=== PATIENT | female | born 1930 | race Caucasian/White ===

== ENCOUNTER → 2017-10-10 | Outpatient (CLI) | payer MEDICARE, BC ==
[~2017-10-10] MED LIST: ALENDRONATE SOD35 MG PO; AMLO5 PO; ASPI325EC PO; ATOR10 PO; CELE200 PO; CHOL10002 PO; CRANBERRY250 MG PO; DOCU100 PO; Dyazide 37.5-21 EACH PO; FISH OIL PO; GABA100 PO; GLUC500 PO; METPRE4DP PO; ONDA4 PO; OXYC5 PO; RALO60 PO; STOOL SOFTENER1 EAC2 PO; TRAM50 PO; TRIHYD253B PO; VIACTIV SOFT C1 EACH PO; VITAMIN B122500 MC1 PO; VITAMIN B6 PO; [UNRECOGNIZED DRUG - OTHER] PO
== END | disposition home or self-care (01) ==
LOC: LAB 17:46
DX: N39.0 Urinary tract infection, site not specified (principal)
CPT/HCPCS: 87077; 87086; 87186

== ENCOUNTER → 2017-10-22 | Outpatient (CLI) | payer MEDICARE, BC | LOC: LAB SHORT 11:00 | DX: N39.0 Urinary tract infection, site not specified (principal) | CPT/HCPCS: 87077; 87086; 87186 ==

== ENCOUNTER 2018-05-30 10:39 | Inpatient (IN) | payer MEDICARE, BC ==
[~2018-05-30] VITALS: Ht 162.6 cm; Wt 74.8 kg
[~2018-05-30 10:39] MED LIST changes: -ASPI325EC PO; -ATOR10 PO; -CHOL10002 PO; -DOCU100 PO; -Dyazide 37.5-21 EACH PO; -FISH OIL PO; -VIACTIV SOFT C1 EACH PO; -VITAMIN B122500 MC1 PO; -[UNRECOGNIZED DRUG - OTHER] PO
[2018-06-03] MEDS ORDERED: CELE200 PO (07:56)
[2018-06-03] MEDS ORDERED: RALO60 PO (07:56)
[2018-06-03] MEDS ORDERED: FISH OIL PO (07:59)
[2018-06-03] MEDS ORDERED: [UNRECOGNIZED DRUG - OTHER] PO (07:59)
[2018-06-10 16:06] LABS: BODY FLUID RBC 0.037 (0-0); RBC Count, Synovial Fluid 37000 /mm3 (0-0); WBC Count, Synovial Fluid 618 /mm3 (0-180)
[2018-06-10 16:11] LABS: Appearance, Synovial Fluid Cloudy (Clear); Color, Synovial Fluid Red (None-P Yel)
[2018-06-10 16:42] LABS: Lymphs, Synovial Fluid 86 % (0-15); Monocytes/Macrophages, Synovia 10 % (0-65); Neutrophils, Synovial Fluid 2 % (0-24)
[2018-06-10 16:43] LABS: Other Cells, Synovial Fluid 2 % (0-0)
[2018-06-11 06:22] LABS: BASOPHILS PERCENT AUTO 0 % (0-2); EOSINOPHILS PERCENT AUTO 0 % (0-6); Hemoglobin 10.4 g/dL (11.5-16.0); IMMATURE GRAN ABSOLUTE AUTO 0.04 K/mm3 (0.00-0.10); IMMATURE GRAN PERCENT AUTO 0 % (0-1); LYMPHOCYTES PERCENT AUTO 8 % (21-46); MONOCYTES ABSOLUTE AUTO 0.89 K/mm3 (0.16-1.47); MONOCYTES PERCENT AUTO 9 % (4-13); Mean Corpuscular HGB 30.2 pg (26.0-34.0); Mean Corpuscular HGB Conc 31.5 g/dL (31.5-36.5); Mean Corpuscular Volume 96 fL (80-100); Mean Platelet Volume 9.1 fL (9.1-12.4); NEUTROPHILS ABSOLUTE AUTO 7.91 K/mm3 (1.96-9.15); NEUTROPHILS PERCENT AUTO 82 % (41-73); Platelet Count 147 K/mm3 (150-400); RDW Coefficient Variation 13.2 % (11.7-14.2); RDW Standard Deviation 46.5 fL (35.1-46.3); Red Blood Cell Count 3.44 M/mm3 (3.80-5.20); White Blood Cell Count 9.64 K/mm3 (4.00-11.30)
[2018-06-11 06:45] LABS: Anion Gap 7 mmol/L (6-16); Blood Urea Nitrogen 21 mg/dL (8-24); Bun/Creatinine Ratio 31.4 (12.0-20.0); CO2, Blood 27 mmol/L (21-32); Calcium, Blood 8.1 mg/dL (8.5-10.1); Chloride, Blood 102 mmol/L (98-108); Creatinine, Blood 0.67 mg/dL (0.40-1.00); Glomerular Filtration Rate >60 (60-); Glucose, Blood 119 mg/dL (70-99); Magnesium, Blood 1.9 mg/dL (1.6-2.4); Potassium, Blood 4.7 mmol/L (3.5-5.5); Sodium, Blood 136 mmol/L (136-145)
[2018-06-11] MEDS ORDERED: OXYC5 PO (12:39)
[2018-06-11] MEDS ORDERED: ASPI325EC PO (12:41)
[2018-06-11] MEDS ORDERED: DOCU100 PO (12:42)
[2018-06-11] MEDS ORDERED: ATOR10 PO (13:09)
[2018-06-11] MEDS ORDERED: Dyazide 37.5-21 EACH PO (13:09)
[2018-06-11] MEDS ORDERED: VITAMIN B122500 MC1 PO (13:10)
[2018-06-11] MEDS ORDERED: CHOL10002 PO (13:10)
[2018-06-11] MEDS ORDERED: VIACTIV SOFT C1 EACH PO (13:10)
== END 2018-06-11 13:55 | disposition home or self-care (01) | DRG 483 ==
LOC: PRE IP 06-04 07:30 → SURS 06-10 11:19
PROVIDERS: Orthopaedic Surgery
PROC: 0RRJ00Z Replacement of Right Shoulder Joint with Reverse Ball and Socket Synthetic Substitute, Open Approach (ICD-10-PCS; principal; 2018-06-10 12:30)
DX: M19.011 Primary osteoarthritis, right shoulder (principal); M12.811 Other specific arthropathies, not elsewhere classified, right shoulder; M06.9 Rheumatoid arthritis, unspecified; I10 Essential (primary) hypertension; K21.9 Gastro-esophageal reflux disease without esophagitis; M81.0 Age-related osteoporosis without current pathological fracture; E78.00 Pure hypercholesterolemia, unspecified; Z85.3 Personal history of malignant neoplasm of breast; Z88.2 Allergy status to sulfonamides; Z79.1 Long term (current) use of non-steroidal anti-inflammatories (NSAID); Z79.899 Other long term (current) drug therapy
CPT/HCPCS: 36415; 73030; 80048; 83735; 85025; 89051; 97110; 97116; 97162; 97166; 97530; 97535; C1776; G8978; G8979; G8980; G8987; G8988; G8989; J0171; J0690; J0735; J1100; J1885; J2370; J2405; J2550; J2765; J2795; J3010; J7120

== ENCOUNTER → 2018-10-23 | Outpatient (CLI) | payer MEDICARE, BC ==
[~2018-10-23] MED LIST changes: +ASPI325EC PO; +ATOR10 PO; +CHOL10002 PO; +DOCU100 PO; +Dyazide 37.5-21 EACH PO; +FISH OIL PO; +VIACTIV SOFT C1 EACH PO; +VITAMIN B122500 MC1 PO; +[UNRECOGNIZED DRUG - OTHER] PO
[2018-10-23 18:29] LABS: Alanine Aminotransfer (ALT/SGP 17 U/L (12-78); Albumin, Blood 3.5 g/dL (3.4-5.0); Albumin/Globulin Ratio 1.1 (0.8-1.8); Alk Phos 61 U/L (50-136); Anion Gap 6 mmol/L (6-16); Aspartate Aminotrans (AST/SGOT 20 U/L (12-37); Bilirubin, Total 0.4 mg/dL (0.1-1.0); Blood Urea Nitrogen 16 mg/dL (8-24); Bun/Creatinine Ratio 19.9 (12.0-20.0); CHOL/HDL RATIO 2.3; CO2, Blood 28 mmol/L (21-32); Calcium, Blood 8.6 mg/dL (8.5-10.1); Chloride, Blood 102 mmol/L (98-108); Cholesterol 202 mg/dL (50-200); Creatinine, Blood 0.81 mg/dL (0.40-1.00); Globulin, Blood 3.2 g/dL (2.2-4.0); Glomerular Filtration Rate >60 (60-); Glucose, Blood 91 mg/dL (70-99); HDL Cholesterol 89 mg/dL (>39); Low Density Lipoprotein Chol 91 mg/dL (0-110); Potassium, Blood 4.2 mmol/L (3.5-5.5); Sodium, Blood 136 mmol/L (136-145); Total Protein, Blood 6.7 g/dL (6.4-8.2); Triglycerides 109 mg/dL (30-160); Very Low Density Lipoprot Chol 21 mg/dL (6-32)
[2018-10-23 19:56] LABS: BASOPHILS ABSOLUTE AUTO 0.03 K/mm3 (0.00-0.23); BASOPHILS PERCENT AUTO 1 % (0-2); EOSINOPHILS ABSOLUTE AUTO 0.04 K/mm3 (0.00-0.68); EOSINOPHILS PERCENT AUTO 1 % (0-6); Hematocrit 41.4 % (33.0-51.0); Hemoglobin 13.2 g/dL (11.5-16.0); IMMATURE GRAN ABSOLUTE AUTO 0.03 K/mm3 (0.00-0.10); IMMATURE GRAN PERCENT AUTO 1 % (0-1); LYMPHOCYTES ABSOLUTE AUTO 1.62 K/mm3 (0.84-5.20); LYMPHOCYTES PERCENT AUTO 33 % (21-46); MONOCYTES ABSOLUTE AUTO 0.59 K/mm3 (0.16-1.47); MONOCYTES PERCENT AUTO 12 % (4-13); Mean Corpuscular HGB 30.3 pg (26.0-34.0); Mean Corpuscular HGB Conc 31.9 g/dL (31.5-36.5); Mean Corpuscular Volume 95 fL (80-100); Mean Platelet Volume 10.4 fL (9.1-12.4); NEUTROPHILS PERCENT AUTO 53 % (41-73); Platelet Count 168 K/mm3 (150-400); RDW Coefficient Variation 13.4 % (11.7-14.2); RDW Standard Deviation 47.6 fL (35.1-46.3); Red Blood Cell Count 4.35 M/mm3 (3.80-5.20); White Blood Cell Count 4.91 K/mm3 (4.00-11.30)
== END ==
LOC: LAB SHORT 17:43 → LAB 17:43
PROVIDERS: Nurse Practitioner Family
DX: E78.5 Hyperlipidemia, unspecified (principal); I10 Essential (primary) hypertension; M85.80 Other specified disorders of bone density and structure, unspecified site
CPT/HCPCS: 80053; 80061; 82306; 85025

== ENCOUNTER 2020-12-30 15:39 | Emergency (ER) | payer MEDICARE, BC ==
[~2020-12-30] VITALS: Ht 154.9 cm; Wt 72.1 kg
[2020-12-30] MEDS ORDERED: AMLODIPINE BES2.5 MG PO (16:21)
[2020-12-30 16:46] LABS: BASOPHILS ABSOLUTE AUTO 0.01 K/mm3 (0.00-0.23); BASOPHILS PERCENT AUTO 0 % (0-2); EOSINOPHILS ABSOLUTE AUTO 0.04 K/mm3 (0.00-0.68); EOSINOPHILS PERCENT AUTO 1 % (0-6); Hematocrit 38.1 % (33.0-51.0); Hemoglobin 12.6 g/dL (11.5-16.0); IMMATURE GRAN ABSOLUTE AUTO 0.01 K/mm3 (0.00-0.10); IMMATURE GRAN PERCENT AUTO 0 % (0-1); LYMPHOCYTES ABSOLUTE AUTO 0.93 K/mm3 (0.84-5.20); LYMPHOCYTES PERCENT AUTO 17 % (21-46); MONOCYTES PERCENT AUTO 11 % (4-13); Mean Corpuscular HGB 32.4 pg (26.0-34.0); Mean Corpuscular HGB Conc 33.1 g/dL (31.5-36.5); Mean Corpuscular Volume 98 fL (80-100); Mean Platelet Volume 10.5 fL (9.1-12.4); NEUTROPHILS ABSOLUTE AUTO 3.78 K/mm3 (1.96-9.15); NEUTROPHILS PERCENT AUTO 70 % (41-73); Platelet Count 184 K/mm3 (150-400); RDW Coefficient Variation 13.9 % (11.7-14.2); RDW Standard Deviation 50.3 fL (35.1-46.3); Red Blood Cell Count 3.89 M/mm3 (3.80-5.20); White Blood Cell Count 5.37 K/mm3 (4.00-11.30)
[2020-12-30 17:04] LABS: Alanine Aminotransfer (ALT/SGP 69 U/L (12-78); Albumin, Blood 3.3 g/dL (3.4-5.0); Albumin/Globulin Ratio 0.9 (0.8-1.8); Alk Phos 69 U/L (50-136); Anion Gap 7 mmol/L (6-16); Aspartate Aminotrans (AST/SGOT 58 U/L (12-37); Bilirubin, Total 0.8 mg/dL (0.1-1.0); Blood Urea Nitrogen 21 mg/dL (8-24); Bun/Creatinine Ratio 24.8 (12.0-20.0); CO2, Blood 25 mmol/L (21-32); Chloride, Blood 105 mmol/L (98-108); Creatinine, Blood 0.85 mg/dL (0.40-1.00); Globulin, Blood 3.8 g/dL (2.2-4.0); Glomerular Filtration Rate >60 (60-); Glucose, Blood 105 mg/dL (70-99); Potassium, Blood 4.1 mmol/L (3.5-5.5); Sodium, Blood 137 mmol/L (136-145); Total Protein, Blood 7.1 g/dL (6.4-8.2); Troponin I 0.015 ng/mL (0.000-0.040)
== END 2020-12-30 20:45 | disposition home or self-care (01) ==
LOC: ER 15:39
PROVIDERS: Physician Assistant
DX: R06.00 Dyspnea, unspecified (principal); Z79.899 Other long term (current) drug therapy
CPT/HCPCS: 36415; 71045; 71260; 80053; 83735; 83880; 84484; 85025; 85379; 93005; 93010; 99285-25; Q9967

== ENCOUNTER 2021-02-08 09:53 | Day surgery (SDC) | payer MEDICARE, BC ==
[~2021-02-08] VITALS: Ht 157.5 cm; Wt 70.0 kg
[~2021-02-08 09:53] MED LIST changes: +AMLODIPINE BES2.5 MG PO
[2021-02-08] MEDS ORDERED: FUROSEMIDE20 MG PO (10:34)
[2021-02-08] MEDS ORDERED: RALOXIFENE HCL PO (10:34)
[2021-02-08] MEDS ORDERED: K-Dur10 MEQ PO (10:35)
[2021-02-08] MEDS ORDERED: CELEBREX200 MG PO (10:36)
--- NOTE | 2021-02-08 11:07 | NUR ---
DR. GUO AT BEDSIDE TO EVALUATE PATIENT. QUESTIONS ANSWERED AND FAMILY PRESENT.
--- NOTE | 2021-02-08 13:05 | NUR ---
TO RECOVERY ROOM VIA RECLINER. PT AWAKE AND ALERT. TR BAND INTACT WITH 12 CC AIR CIRCULATION, SENSATION, MOTION NORMAL. DENIES CHEST PAIN.
--- NOTE | 2021-02-08 13:37 | NUR ---
DR. GUO HERE TO DISCUSS PROCEDURE WITH PATIENT.
--- NOTE | 2021-02-08 13:40 | NUR ---
2 CC AIR REMOVED FROM TR BAND. NO BLEEDING AT SITE. ADDITIONAL 4 CC AIRE REMOVED FROM BAND.
--- NOTE | 2021-02-08 14:20 | NUR ---
REMAINDER OF AIR REMOVED FROM TR BAND. SCANT BLOOD AT SITE BUT NO OOZING. BP 97/70. PT AWAKE AND ALERT
--- NOTE | 2021-02-08 14:30 | NUR ---
AMBULATED TO BATHROOM. DRESSING FOR DISCHARGE. SITE BLEEDING. AMBULATED TO BAED. SITE CLEANED. BRUISED BUT NO ACTIVE BLEEDING. CLOTH DOT, IMMOBILIZER AND SLING APPLIED. RIGHT BRACHEAL SITE UNCHANGED.
--- NOTE | 2021-02-08 15:15 | NUR ---
DAUGHTER MAZIN HERE. DISCHARGE INSTRUCTIONS GIVEN TO BOTH DAUGHTER AND PATIENT. IV REMOVED INTACT. 2X2, COBAN AND MANUAL PRESSURE APPLIED.
--- NOTE | 2021-02-08 15:35 | NUR ---
DISCHARGED HOME VIA WHEELCHAIR. DAUGHTER DRIVING.
[2021-02-18] MEDS ORDERED: Pyridium100 MG PO
[2021-02-18] MEDS ORDERED: Cipro500 MG PO
== END 2021-02-08 15:35 | disposition home or self-care (01) ==
LOC: MHTC 09:53
DX: I35.0 Nonrheumatic aortic (valve) stenosis (principal); I34.0 Nonrheumatic mitral (valve) insufficiency; R06.09 Other forms of dyspnea; I11.0 Hypertensive heart disease with heart failure; I50.9 Heart failure, unspecified; I34.1 Nonrheumatic mitral (valve) prolapse; E78.5 Hyperlipidemia, unspecified
CPT/HCPCS: 76937; 93456; 99152; 99153; C1769; C1894; J1644; J2250; J3010; J7030; J7040; Q9967

== ENCOUNTER 2021-02-18 19:19 | Emergency (ER) | payer MEDICARE, BC ==
[~2021-02-18] VITALS: Ht 157.5 cm; Wt 70.3 kg
[~2021-02-18 19:19] MED LIST changes: +CELEBREX200 MG PO; +Cipro500 MG PO; +FUROSEMIDE20 MG PO; +K-Dur10 MEQ PO; +Pyridium100 MG PO; +RALOXIFENE HCL PO
[2021-02-18 20:32] LABS: BASOPHILS ABSOLUTE AUTO 0.02 K/mm3 (0.00-0.23); BASOPHILS PERCENT AUTO 0 % (0-2); EOSINOPHILS ABSOLUTE AUTO 0.07 K/mm3 (0.00-0.68); EOSINOPHILS PERCENT AUTO 1 % (0-6); Hematocrit 37.8 % (33.0-51.0); Hemoglobin 12.4 g/dL (11.5-16.0); IMMATURE GRAN ABSOLUTE AUTO 0.02 K/mm3 (0.00-0.10); IMMATURE GRAN PERCENT AUTO 0 % (0-1); LYMPHOCYTES ABSOLUTE AUTO 0.81 K/mm3 (0.84-5.20); LYMPHOCYTES PERCENT AUTO 15 % (21-46); MONOCYTES ABSOLUTE AUTO 0.59 K/mm3 (0.16-1.47); MONOCYTES PERCENT AUTO 11 % (4-13); Mean Corpuscular HGB 32.5 pg (26.0-34.0); Mean Corpuscular HGB Conc 32.8 g/dL (31.5-36.5); Mean Corpuscular Volume 99 fL (80-100); Mean Platelet Volume 9.5 fL (9.1-12.4); NEUTROPHILS ABSOLUTE AUTO 3.93 K/mm3 (1.96-9.15); NEUTROPHILS PERCENT AUTO 72 % (41-73); Platelet Count 151 K/mm3 (150-400); RDW Coefficient Variation 13.8 % (11.7-14.2); RDW Standard Deviation 50.8 fL (35.1-46.3); Red Blood Cell Count 3.81 M/mm3 (3.80-5.20); White Blood Cell Count 5.44 K/mm3 (4.00-11.30)
[2021-02-18 20:50] LABS: Alanine Aminotransfer (ALT/SGP 63 U/L (12-78); Albumin, Blood 3.2 g/dL (3.4-5.0); Albumin/Globulin Ratio 0.9 (0.8-1.8); Alk Phos 70 U/L (50-136); Anion Gap 6 mmol/L (6-16); Aspartate Aminotrans (AST/SGOT 50 U/L (12-37); Bilirubin, Total 0.8 mg/dL (0.1-1.0); Blood Urea Nitrogen 16 mg/dL (8-24); Bun/Creatinine Ratio 17.3 (12.0-20.0); CO2, Blood 28 mmol/L (21-32); Calcium, Blood 8.7 mg/dL (8.5-10.1); Chloride, Blood 104 mmol/L (98-108); Creatinine, Blood 0.92 mg/dL (0.40-1.00); Globulin, Blood 3.5 g/dL (2.2-4.0); Glomerular Filtration Rate >60 (60-); Glucose, Blood 146 mg/dL (70-99); Potassium, Blood 3.7 mmol/L (3.5-5.5); Sodium, Blood 138 mmol/L (136-145); Total Protein, Blood 6.7 g/dL (6.4-8.2); Troponin I <0.015 ng/mL (0.000-0.040)
[2021-02-18 21:03] LABS: Source, Urine Catheter
[2021-02-18 21:06] LABS: Appearance, Urine Cloudy (Clear); Bilirubin, Urine Neg (Neg); Blood, Urine 3+ (Neg); Color, Urine Yellow (P-Yellow); Glucose Qualitative, Urine Neg (Neg); Ketones, Urine Neg (Neg); Leukocyte Esterase, Urine 3+ (Neg); Nitrite, Urine Neg (Neg); Protein, Urine 3+ (Neg); Urobilinogen, Urine NORM (Normal)
[2021-02-18 21:13] LABS: White Blood Cells, Urine TNTC /hpf (0-5)
[2021-02-18 21:14] LABS: Bacteria Mod /hpf; Squamous Epithelial Cells Few /hpf (Few)
== END 2021-02-19 00:15 | disposition home or self-care (01) ==
LOC: ER 19:19
PROVIDERS: Physician Assistant
DX: I82.819 Embolism and thrombosis of superficial veins of unspecified lower extremity (principal); Z88.2 Allergy status to sulfonamides; Z79.899 Other long term (current) drug therapy
CPT/HCPCS: 36415; 71046; 71260; 80053; 81001; 83690; 83880; 84484; 85025; 85379; 87086; 93005; 93010; 93931; 96365; 99285-25; J0696; Q9967

== ENCOUNTER 2021-04-15 05:26 | Inpatient (IN) | payer MEDICARE, BC ==
[~2021-04-15] VITALS: Ht 154.9 cm; Wt 69.7 kg
[~2021-04-15 05:26] MED LIST changes: -CHOL10002 PO; +FURO40 PO; -FUROSEMIDE20 MG PO; +VITAMIN D31000 UNI1 PO
[2021-04-15 06:34] LABS: BASOPHILS ABSOLUTE AUTO 0.01 K/mm3 (0.00-0.23); BASOPHILS PERCENT AUTO 0 % (0-2); EOSINOPHILS ABSOLUTE AUTO 0.05 K/mm3 (0.00-0.68); EOSINOPHILS PERCENT AUTO 1 % (0-6); Hemoglobin 9.9 g/dL (11.5-16.0); IMMATURE GRAN ABSOLUTE AUTO 0.02 K/mm3 (0.00-0.10); IMMATURE GRAN PERCENT AUTO 0 % (0-1); LYMPHOCYTES ABSOLUTE AUTO 0.63 K/mm3 (0.84-5.20); LYMPHOCYTES PERCENT AUTO 11 % (21-46); MONOCYTES ABSOLUTE AUTO 0.58 K/mm3 (0.16-1.47); MONOCYTES PERCENT AUTO 10 % (4-13); Mean Corpuscular HGB 34.1 pg (26.0-34.0); Mean Corpuscular Volume 103 fL (80-100); Mean Platelet Volume 9.6 fL (9.1-12.4); NEUTROPHILS ABSOLUTE AUTO 4.35 K/mm3 (1.96-9.15); NEUTROPHILS PERCENT AUTO 77 % (41-73); Platelet Count 104 K/mm3 (150-400); RDW Coefficient Variation 19.8 % (11.7-14.2); RDW Standard Deviation 72.2 fL (35.1-46.3); White Blood Cell Count 5.64 K/mm3 (4.00-11.30)
[2021-04-15 06:46] LABS: Alanine Aminotransfer (ALT/SGP 30 U/L (12-78); Albumin, Blood 3.4 g/dL (3.4-5.0); Albumin/Globulin Ratio 1.1 (0.8-1.8); Alk Phos 44 U/L (50-136); Anion Gap 8 mmol/L (6-16); Aspartate Aminotrans (AST/SGOT 77 U/L (12-37); Blood Urea Nitrogen 18 mg/dL (8-24); Bun/Creatinine Ratio 21.3 (12.0-20.0); CO2, Blood 25 mmol/L (21-32); Calcium, Blood 9.1 mg/dL (8.5-10.1); Chloride, Blood 103 mmol/L (98-108); Creatinine, Blood 0.84 mg/dL (0.40-1.00); Glomerular Filtration Rate >60 (60-); Glucose, Blood 94 mg/dL (70-99); Potassium, Blood 3.8 mmol/L (3.5-5.5); Sodium, Blood 136 mmol/L (136-145); Total Protein, Blood 6.4 g/dL (6.4-8.2); Troponin I 0.027 ng/mL (0.000-0.040)
--- NOTE | 2021-04-15 16:29 | NUR ---
PT CAME IN FOR ACUTE ON CHRONI CHF. PT IS 89/F ALERT AND ORINTEDX4; PLEASANT AND CALM. PT USES HEARING AIDES IN BOTH EARS. PT IS A 1P ASSIST [place]WW TO [facility] [place]. PT IS ON 3L OF 02 AT BASELINE. SATS ABOVE 90S. DYSPNEA ON EXERTION AND DENIES CP. PT HAD A AORTIC VALVE REPLACEMENT COUPLE MONTHS AGO IN [facility], AND SHE STATED THAT HER HEART WAS NEVER RIGHT AFTER THAT. PT LIVES WITH DTR AT HOME. PT TROP WNL AND BNP 1094. PT HAS BLE EDEMA +2/3. PT ALSO HAS DEPENDENT EDEMA ON RIGHT SHOULDER FROM PREVIOUS SURGERY. PAINFUL TO TOUCH. 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 PT HAS ECCHYMOTIC SKIN SCARTTERED AND INTACT. PT WOULD LIKE TO CONSIDER HOSPICE ON DISCHARGE. DTR WOULD LIKE TO BE PART AND TALK TO PALLIATIVE CARE. PT STATED SHE IS FAMILIAR WITH HOSPICE SINCE HER HAD HOSPICE 3YEARS AGO. BED ALARM IS ON AND CALL LIGHT WITHIN REACH
[2021-04-16 05:06] LABS: Hematocrit 32.8 % (33.0-51.0); Hemoglobin 10.3 g/dL (11.5-16.0); Mean Corpuscular HGB Conc 31.4 g/dL (31.5-36.5); Mean Corpuscular Volume 105 fL (80-100); Mean Platelet Volume 11.3 fL (9.1-12.4); Platelet Count 98 K/mm3 (150-400); RDW Standard Deviation 74.7 fL (35.1-46.3); Red Blood Cell Count 3.12 M/mm3 (3.80-5.20); White Blood Cell Count 6.42 K/mm3 (4.00-11.30)
[2021-04-16 05:29] LABS: Anion Gap 7 mmol/L (6-16); Blood Urea Nitrogen 18 mg/dL (8-24); Bun/Creatinine Ratio 23.5 (12.0-20.0); CO2, Blood 29 mmol/L (21-32); Calcium, Blood 8.6 mg/dL (8.5-10.1); Chloride, Blood 103 mmol/L (98-108); Creatinine, Blood 0.77 mg/dL (0.40-1.00); Glomerular Filtration Rate >60 (60-); Glucose, Blood 88 mg/dL (70-99); Potassium, Blood 3.3 mmol/L (3.5-5.5); Sodium, Blood 139 mmol/L (136-145)
--- NOTE | 2021-04-16 06:46 | NUR ---
SHIFT SUMMARY PT IS AN 89 Y/O FEMALE, ADMITTED FOR CHF EXACERBATION. SHE IS A&O X 3, FORGETFUL AT TIMES, 1PA TO THE BSC. DURING THE NIGHT, CAN TOP SETTER NOTED THAT PT WAS HAVING MULTIPLE PVCS, UP TO 30 IN ONE MINUTE, AND WAS IN BIGEMINY FOR A SHORT TIME, WITH A RATE IN THE 110-130S. AFTER INFORMING HOSPITALIST DR HOLLEY, PT WAS GIVEN OT DOSE OF IV METOPROLOL, WHICH MARK HER RATE DOWN TO THE 90-100S. VITAL SIGNS OTHERWISE STABLE. NO OTHER ACUTE CHANGES IN PT CONDITION NOTED DURING THE NIGHT. WILL CONTINUE TO MONITOR AND TREAT PER EMAR UNTIL HAND OFF TO DAY SHIFT RN.
--- NOTE | 2021-04-16 10:19 | NUR ---
DNR BAND VERIFIED AND PLACED ON LEFT WRIST
--- NOTE | 2021-04-16 18:12 | NUR ---
SHIFT SUMMARY PT AOX4; CALLS APPROPRIATELY. PT ON TELE SINUS TACH @ 100S. PT DENIES CP. DYSPNEA ON EXERTION AND ON 3L AT BASELINE. SATS ABOVE 90S. MEDICATED FOR PAIN PER EMAR. PT WILL HAVE A CONFERENCE MEETING WITH PALLIATIVE CARE TOMORROW- PLEASE CALL PALLIATIVE FOR THIS PT TOMORROW. THE MEETING WILL HAPPEN IN THE ROOM WITH DAUGHTERS CONSIDERING HOSPICE. BED IS IN THE LOWEST POSITION AND CALL LIGHT WITHIN REACH
[2021-04-17 04:41] LABS: Hematocrit 31.5 % (33.0-51.0); Mean Corpuscular HGB 33.8 pg (26.0-34.0); Mean Corpuscular HGB Conc 31.7 g/dL (31.5-36.5); Mean Corpuscular Volume 106 fL (80-100); Mean Platelet Volume 9.3 fL (9.1-12.4); Platelet Count 91 K/mm3 (150-400); RDW Coefficient Variation 19.7 % (11.7-14.2); RDW Standard Deviation 74.6 fL (35.1-46.3); Red Blood Cell Count 2.96 M/mm3 (3.80-5.20); White Blood Cell Count 5.68 K/mm3 (4.00-11.30)
[2021-04-17 05:04] LABS: Anion Gap 5 mmol/L (6-16); Blood Urea Nitrogen 17 mg/dL (8-24); Bun/Creatinine Ratio 23.3 (12.0-20.0); CO2, Blood 29 mmol/L (21-32); Calcium, Blood 8.6 mg/dL (8.5-10.1); Chloride, Blood 103 mmol/L (98-108); Creatinine, Blood 0.73 mg/dL (0.40-1.00); Glomerular Filtration Rate >60 (60-); Glucose, Blood 89 mg/dL (70-99); Potassium, Blood 3.5 mmol/L (3.5-5.5); Sodium, Blood 137 mmol/L (136-145)
--- NOTE | 2021-04-17 06:43 | NUR ---
SHIFT SUMMARY PT IS AN 89 Y/O FEMALE, ADMITTED FOR CHF. SHE IS A&O X 4, FORGETFUL AT TIMES, 1PA TO THE BSC. PT WAS MEDICATED ONCE AT HS FOR CHRONIC BACK PAIN WITH PRN TRAMADOL. NO C/O NAUSEA OR SOB. TELE SHOWED NSR IN THE 90S. CURRENTLY ON 3L O2 VIA NC, WHICH IS HER NORMAL HOME DOSE, SATTING > 92%. VITAL SIGNS OTHERWISE STABLE. NO OTHER ACUTE CHANGES IN PT CONDITION NOTED DURING THE NIGHT. WILL CONTINUE TO MONITOR AND TREAT PER EMAR UNTIL HAND OFF TO DAY SHIFT RN.
--- NOTE | 2021-04-17 16:36 | NUR ---
multiple conversations and visits with family to plan for pateitnts discharge needs. pt to dc on hospice care.
--- NOTE | 2021-04-17 21:22 | NUR ---
CALLED HOSPITALIST PT STATES SHE IS EXTREMELY SOB. SHE SEEMS QUITE ANXIOUS. NEW ORDER FOR DIURETIC RECEIVED. SHE DID CALL HER DAUGHTER. HER DAUGHTER REQUESTS THAT SHE DC WITH ANXIETY MEDICATION. I WILL PASS THIS REQUEST ON TO DAY RN.
--- NOTE | 2021-04-18 04:09 | NUR ---
SHIFT SUMMARY ADMITTED FOR CHF EXACERBATION. DNR CODE. PLAN IS FOR DC HOME WITH FAMILY ON HOSPICE. SHE DID HAVE SOB AT BEGINNING OF SHIFT. I DID CALL AND GET AN ORDER FOR LASIX. SEE PREVIOUS NOTE, THIS WAS EFFECTIVE. THE PT REPORTS IMPROVEMENT. SHE IS A&O X 3-4, BUT QUITE ANXIOUS AT TIMES. DAUGHTER REQUESTS ANXIETY MEDICATION AT DC, I WILL PASS THIS REQUEST ON TO DAY RN.
[2021-04-18] MEDS ORDERED: METO25ER PO (08:27)
--- NOTE | 2021-04-18 12:30 | NUR ---
DISCHARGE DISCHARGE INSTRUCTIONS, MEDICATION LIST AND FOLLOW UP APPOINTMENT REVIEWED WITH PT. QUESTIONS/CONCERNS ANSWERED. PT VERBALLY INDICATED UNDERSTANDING OF ALL INSTRUCTIONS RECEIVED. HARD COPY SCRIP FOR PO ATIVAN 1MG Q8H PRN ANXIETY GIVEN TO PT. WAITING FOR [facility] AT THIS TIME.
== END 2021-04-18 15:39 | disposition home or self-care (01) | DRG 293 ==
LOC: ER 05:26 → ERHOLD 08:30 → MEDS 16:05
PROVIDERS: Emergency Medicine; ADMIT Internal Medicine
DX: I50.43 Acute on chronic combined systolic (congestive) and diastolic (congestive) heart failure (principal); Z66 Do not resuscitate; M06.9 Rheumatoid arthritis, unspecified; R54 Age-related physical debility; E87.6 Hypokalemia; M19.012 Primary osteoarthritis, left shoulder; I27.20 Pulmonary hypertension, unspecified; Z96.652 Presence of left artificial knee joint; Z96.612 Presence of left artificial shoulder joint; Z95.2 Presence of prosthetic heart valve; Z85.3 Personal history of malignant neoplasm of breast; Z88.2 Allergy status to sulfonamides; Z79.899 Other long term (current) drug therapy
CPT/HCPCS: 36415; 71045; 80048; 80053; 83880; 84484; 85025; 85027; 93005; 93010; 96374; 99285-25; A9270; J1940